=== PATIENT | male | born 2000 | race Caucasian/White ===

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

== ENCOUNTER 2024-12-02 07:04 | Emergency (ER) | payer OTHER, SELFPAY ==
[2024-12-02 07:04] VITALS: BP 148/68; PULSE 76; RESP 19; TEMP 36.7; O2SAT 98; BMI 36.8
--- NOTE | 2024-12-02 07:08 | EDS_ITS ---
HPI History of Present Illness HPI Narrative: Patient presents with right ankle injury that occurred 2 days ago. Patient states he inverted his ankle. Patient states he felt a pop or snap in his ankle. Patient describes his pain as dull and burning. Patient states it is worse with ambulation. Patient denies any paresthesias or weakness. Patient states nothing seems to help with the pain. Patient denies any other injuries. Patient denies any pain over the proximal fibula. Chief Complaint: Lower Extremity Injury Informant: patient Occured/Mechanism Mechanism/Context: Yes injury Comment: Inversion injury Onset/Context/Timing Onset: Days (2 days ago) Context: Sudden Onset Timing: Continuous Quality of Pain: Dull and Burning Location: Right ankle Worsened by: Ambulation, weightbearing Relieved by: Nothing Associated Symptoms Associated Symptoms: Negative for Parasthesia, Weakness or Loss of Funtion [facility] Medical History Asthma Allergies [facility] for apnea Hay fever Home Medications ?Medication ?Instructions ?Recorded ?Last Taken ?Type montelukast 10 mg tablet 10 mg PO DAILY 07/24/18 Unkn own History albuterol sulfate 90 mcg/actuation 2 puff inhalation Q 4H PRN PRN 10/14/19 Unknown Rx aerosol inhaler Asthma #8 grams benzonatate 200 mg capsule 200 mg PO TID PRN cough #20 caps 10/22/24 Unknown Rx methylprednisolone 4 mg tablets in See Rx Instructions PO PER PKG DIR 10/22/24 Unknown Rx a dose pack (Medrol (Iron)) #21 tabs Allergy/AdvReac Type Severity Reaction Status Date / Time amoxicillin Allergy Unknown Rash Verified 12/02/24 07:04 Family History Other Hypertension Mitral valve prolapse Narcolepsy Rheumatoid arthritis Surgical History History of placement of ear tubes History of tonsillectomy and adenoidectomy Social History Smoking Status: Never smoker alcohol intake: never ROS ROS ED Constitutional Constitutional ED: Denies chills or fever(s) Eyes Eyes: Denies blurry vision or change in vision ENT ENT ED: Denies rhinorrhea or sore throat Cardiovascular Cardiovascular: Denies chest pain or palpitations Respiratory/Chest Respiratory/Chest: Denies cough or dyspnea Gastrointestinal Gastrointestinal: Denies nausea or vomiting Genitourinary Genitourinary ED: Denies dysuria or hematuria Musculoskeletal Musculoskeletal: Denies back pain or neck pain Integumentary Denies abscess or rash Neurologic Neurologic: Denies headache(s) or weakness Allergic/Immunologic Allergic/Immunologic ED: Denies mouth swelling or urticaria EXAM Physical Exam Const Vital Signs: 12/02/24 07:04 Temperature 98.1 F Temperature Source Oral Pulse Rate 76 Respiratory Rate 19 H Blood Pressure 148/68 H Blood Pressure Mean 94 Pulse Ox 98 Oxygen Delivery Method Room Air Positive well nourished and well developed General Appearance ED: well developed and NAD HEENT Reports moist mucous membranes Neck full ROM and supple Extremity Extremity Narrative: There is tenderness, edema, and ecchymosis of the lateral aspect of the right ankle and hindfoot. There is no obvious deformity noted. Range of motion was limited in inversion and eversion secondary to pain. Pedal pulses are equal bilaterally. Sensation was intact to light touch in all digits. Capillary refill was less than 2 seconds in all digits. Strength is 5/5 bilaterally in the lower extremities. Neuro oriented x3, CN's II-XII intact bilaterally, moves all extremities and no sensory deficits noted Sensorium / Orientation: alert Motor Exam: strength 5/5 throughout Psych mental status grossly normal MDM MDM MDM Narrative Medical decision making narrative: Differential diagnosis includes sprain, fracture, contusion. X-rays of the right ankle will be obtained to assess for fracture. Radiography Diagnostic Testing: Clinical Impression(s) from Imaging Studies Ankle X-Ray 12/02/24 07:20 IMPRESSION: 1. Well corticated bone fragment adjacent to the tip of the lateral malleolus, chronic finding. 2. Soft tissue edema and swelling overlying the lateral malleolus. Reading Location: [place] [address] X-rays of the right ankle were obtained. There are 2 views. On my independent interpretation, there is a small avulsion fracture of the tip of the lateral malleolus. There are no other acute fractures noted. Radiologist also interpreted the x-rays and stated that this is a chronic finding. Treatment and Re-Evaluation Narrative: Patient was advised of his findings. Patient was given an Aircast. Patient was instructed to ice and elevate the right ankle. Patient was instructed to follow-up with his primary care physician in 5 to 7 days. Patient was also given a referral for podiatry. Patient understood and was agreeable with the plan. All questions were answered. Discharge Plan Triage Chief Complaint: Lower Extremity Injury ED Provider: Denton Parsons Dx/Rx/DC Orders Clinical Impression: Right ankle sprain, Elevated blood pressure reading without diagnosis of hypertension Instructions: ED Ankle Sprain (Adult) Prescriptions: No Action albuterol sulfate 90 mcg/actuation HFA aerosol inhaler 2 puff Inhalation Q4H PRN PRN (Reason: Asthma) Qty: 8 0RF methylprednisolone [Medrol (Iron)] 4 mg tablets,dose pack See Rx Instructions PO PER PKG DIR Qty: 21 0RF Rx Instructions: PO PER PKG DIR benzonatate 200 mg capsule 200 mg PO TID PRN (Reason: cough) Qty: 20 0RF montelukast 10 MG tablet 10 mg PO DAILY Primary Care Provider: Care Physician,No Primary Referrals: David Villegas MD [Med Staff - Baby Formula Mixer] - 5-7 Days Pillo De La Fuente MD [Non-Staff] - Karlos Dugan DPM [Med Staff - Active Staff] - 5-7 Days Print Language: Namibian Disposition Disposition: Home, Self Care
--- NOTE | 2024-12-02 07:20 | RAD_ITS ---
PROCEDURE: ANKLE MIN 3 VIEWS 12/02/2024 REASON FOR EXAM: INJURY/PAIN TECHNIQUE: 3 views of the right ankle COMPARISON: None. FINDINGS: Well corticated bone fragment adjacent to the tip of the lateral malleolus, chronic finding. Soft tissue edema and swelling overlying the lateral malleolus. Normal visualized distal tibia and medial malleolus. Normal visualized distal fibula and lateral malleolus. Normal tibiotalar articulation and ankle mortise. Normal visualized talus. Normal visualized calcaneus. The visualized subtalar, talonavicular, calcaneocuboid and tarsal articulations are normal. RAD/Ankle min 3 Views IMPRESSION: 1. Well corticated bone fragment adjacent to the tip of the lateral malleolus, chronic finding. 2. Soft tissue edema and swelling overlying the lateral malleolus. [facility] [place] [address]
[2024-12-02] MEDS: Ibuprofen 400 MG Tablet 800 MG PO (08:04)
== END 2024-12-02 08:27 | disposition home or self-care (01) ==
PROVIDERS: Emergency Provider Emergency Medicine; Visit Provider Emergency Medicine
DX: S93.401A Sprain of unspecified ligament of right ankle, initial encounter (principal); X50.1XXA Overexertion from prolonged static or awkward postures, initial encounter; R03.0 Elevated blood-pressure reading, without diagnosis of hypertension; J45.909 Unspecified asthma, uncomplicated
CPT/HCPCS: 73610; 99283

== ENCOUNTER → 2025-01-17 | Outpatient (CLI) | payer OTHER, SELFPAY ==
--- OUTSIDE RECORDS SUMMARY | 2025-01-17 07:29 | XMS RPT_ITS | CCD ---
Author Organization [facility] Care Team Providers Care Range Aide Name Role Phone René Hallman Unavailable Angeli Avalos LPN Unavailable Ortiz EXTERMINATOR TERMITE-C, Moy A Unavailable Unavailable Now Nurse Unavailable Unavailable Ely Rebolledo LPN Unavailable Unavailab le Ortiz EXTERMINATOR TERMITE-C, Moy A Unavailable Unavailable Sudhakar DAUGHERTY, Dr. Ferro Primary Care Provider Dr. Ana Fofana MD Referring Provider Sergey Wilson Attending Provider Dr. Denton Parsons DO Emergency Provider Care Physician, No Primary Primary Care Provider Unavailable Sergey Wilson Attending Unavailable Ana Fofana Primary Care Unavailable Ana Fofana Referring Unavailable Care Physician, No Primary Primary Care Unava ilable Denton Parsons Attending Unavailable Care Physician, No Primary Primary Care Unava ilable Karlos Dugan Attending Unavailable Karlos Dguan Referring Unavailable Allergies Allergy Classification Reported Allergen(s) Allergy Type Date of Onset Reaction(s) Facility (7 sources) amoxicillin drug allergy 08-30-2016 Evelyn Ware [facility] Work Phone: (1 source) Amoxicillin Drug Allergy 12-02-2024 [facility] Repository Medications Current Medications Medication Drug Class(es) Dates Sig (Normalized) Sig (Original) [id number] 200 actuat albuterol 0.09 mg/actuat metered dose inhaler (8 sources) beta2-Adrenergic Agonist Start: 07-24-2018 End: 10-14-2019 Albuterol Sulfate 90 mcg/actuation HFA aerosol inhaler Active 2 NMA INHALATION EVERY 4 HOURS NEEDED as needed for Asthma October 14, 2019 3:03pm Start: 08-30-2016 ALBUTEROL SULF ATE NEBU as directed ALBUTEROL SULFATE [facility] [id number] Sergey SALDANA Start: 08-30-2016 ALBUTEROL SULF ATE NEBU as directed ALBUTEROL SULFATE [facility] [id number] Sergey SALDANA benzonatate 200 mg oral capsule (1 source) Non-narcotic Antitussive Start: 10-22-2024 take 1 capsule by mouth three times daily as needed for cough Benzonatate 200 mg capsule Active 200 mg PO THREE TIMES A DAY as needed for cough October 22, 2024 12:00am methylPREDNISolone 4 mg oral tablet (2 sources) Corticosteroid Start: 10-22-2024 take 1 tablet by mouth once Methylprednisolone (Medrol (Iron)) 4 mg tablets,dose pack Active 0 PO per package directions October 22, 2024 12:00am PO PER PKG DIR Start: 10-14-2019 End: 10-19-2019 take 1 tablet by mouth once Methylprednisolone (Medrol (Iron)) 4 mg tablets,dose pack Discontinued 4 mg PO per package directions 31 12October 14, 2019 1:00am October 18, 2019 1:00am October 19, 2019 1:09am montelukast 10 mg oral tablet (7 sources) Leukotriene Receptor Antagonist Start: 07-24-2018 take 1 tablet by mouth once daily Montelukast 10 MG tablet Active 10 mg PO DAILY July 24, 2018 1:00am Start: 08-30-2016 SINGULAIR TABS as directed MONTELUKAST SODIUM TABS [id number] Sergey SALDANA Start: 08-30-2016 SINGULAIR TABS as directed MONTELUKAST SODIUM TABS [id number] Sergey SALDANA Completed/Discontinued Medications Medication Drug Class(es) Dates Sig (Normalized) Sig (Original) azithromycin 250 mg oral tablet (1 source) Macrolide Antimicrobial Start: 10-14-2019 End: 03-26-2020 take 2-5 tablets by mouth once daily Azithromycin 250 mg tablet Discontinued 0 PO .COMPLEX 6 October 14, 2019 1:00am March 26, 2020 7:26am take 500 mg today (day 1), then 250 mg for 4 days (days 2-5) PO LORATADINE TABS (6 sources) Start: 08-30-2016 LORATADINE TABS as directed LORATADINE TABS [id number] Sergey SALDANA Start: 08-30-2016 LORATADINE TAB S as directed LORATADINE TABS [id number] Sergey SALDANA NAPROXEN SODIUM TABS (6 sources) Nonsteroidal Anti-inflammatory Drug Start: 08-30-2016 ALEVE TABS as directed NAPROXEN SODIUM TABS [id number] Sergey SALDANA Start: 08-30-2016 ALEVE TABS as directed NAPROXEN SODIUM TABS [id number] Sergey SALDANA Problems Active Problems Problem Classification Problem Date Documented Da te Episodic/Chronic Asthma (1 source) Asthmatic bronchitis; Translations: [Unspecified asthma with (acute) exacerbation] 10-14-2019 Chronic Fracture of lower limb (1 source) Displaced fracture of lateral malleolus of left fibula, subsequent encounter for closed fracture with delayed healing; Translations: [Displaced fracture of lateral malleolus of left fibula, subsequent encounter for closed fracture with delayed healing] Onset: 01-13-2025 Episodic Immunizations and screening for infectious disease (1 source) Contact with and (suspected) exposure to other viral communicable diseases; Translations: [Contact with and (suspected) exposure to other viral communicable diseases] Onset: 12-16-2024 Episodic Other bone disease and musculoskeletal deformities (4 sources) Segmental and somatic dysfunction; Translations: [Segmental and somatic dysfunction of cervical region] 04-03-2019 Episodic Other circulatory disease (1 source) Elevated blood-pressure reading without diagnosis of hypertension; Translations: [Elevated blood-pressure reading, without diagnosis of hypertension] 12-02-2024 Episodic Other non-traumatic joint disorders (1 source) Pain in right ankle and joints of right foot; Translations: [Pain in right ankle and joints of right foot] Onset: 12-16-2024 Episodic Residual codes; unclassified (1 source) Chills (without fever); Translations: [Chills (without fever)] Onset: 12-16-2024 Episodic Sprains and strains (5 sources) Strain of muscle and/or tendon of lower leg; Translations: [Strain of unspecified muscle and tendon at ankle and foot level, left foot, initial encounter] Onset: 01-13-2025 10-04-2018 Episodic Unclassified (4 sources) History and physical examination, sports participation ; Translations: [Encounter for examination for participation in sport] Onset: 02-15-2017 02-15-2017 Unclassified (1 source) Influenza vaccination ; Translations: [Encounter for immunization] Onset: 07-07-2017 07-07-2017 Unclassified (1 source) Other specified cough; Translations: [Other specified cough] Onset: 12-16-2024 Past or Other Problems Problem Classification Problem Date Documented Da te Episodic/Chronic Crushing injury or internal injury (6 sources) Crushing injury of right hand, initial encounter; Translations: [Crushing injury of right hand, initial encounter] Onset: 01-02-2017 01-02-2017 Episodic Fracture of upper limb (20 sources) Nondisplaced fracture of base of fourth metacarpal bone, right hand, subsequent encounter for fracture with routine healing; Translations: [Nondisplaced fracture of base of third metacarpal bone, right hand, subsequent encounter for fracture with routine healing] Onset: 08-30-2016 09-15-2016 Episodic Other connective tissue disease (8 sources) Foot pain; Translations: [Hand pain] Onset: 01-02-2017 04-27-2017 Episodic Other connective tissue disease (1 source) Hand pain; Translations: [Pain in right hand] Onset: 01-02-2017 01-02-2017 Episodic Superficial injury; contusion (3 sources) Contusion of left foot, initial encounter; Translations: [Contusion of left foot, initial encounter] Onset: 04-27-2017 04-27-2017 Episodic Unclassified (1 source) [facility] for apnea 03-11-2022 Results Test Name Value Interpretation Reference Range Facility Ankle min 3 Viewson 12-03-19 25 Ankle min 3 Views [facility] Imaging Services [address] [place] [id number] Ankle min 3 Views MR#: [id number] Acct: [id number] Name: JAXON KEMP Rep #: [id number] : 2000 M 24 From: Stanton galvan MD PCP: Care Physician,No Primary Status: REG ER Study: Ankle min 3 Views Date of Exam: 12/02/24 Exam# [id number] Ordering Dr: Denton Parsons DO PROCEDURE: ANKLE MIN 3 VIEWS 12/02/2024 REASON FOR EXAM: INJURY/PAIN TECHNIQUE: 3 views of the right ankle COMPARISON: None. FINDINGS: Well corticated bone fragment adjacent to the tip of the lateral malleolus, chronic finding. Soft tissue edema and swelling overlying the lateral malleolus. Normal visualized distal tibia and medial malleolus. Normal visualized distal fibula and lateral malleolus. Normal tibiotalar articulation and ankle mortise. Normal visualized talus. Normal visualized calcaneus. The visualized subtalar, talonavicular, calcaneocuboid and tarsal articulations are normal. RAD/Ankle min 3 Views IMPRESSION: 1. Well corticated bone fragment adjacent to the tip of the lateral malleolus, chronic finding. 2. Soft tissue edema and swelling overlying the lateral malleolus. Reading Location: [place] [address] CC: Dr. Denton Parsons DO; No Primary Care Physician Quotation Checker: Signed Normal [facility] Emergency Department Summary on 12-02-2024 Emergency Department Summary [facility] Medical Records Department [address] [place] [address] Emergency Department Summary 12/02/24 MR#: [id number] Acct: [id number] Name: JAXON KEMP Rep #: [id number] : 2000 24 From: Denton Parsons DO PCP: Care Physician,No Primary Status:DEP ER Location: ED HPI History of Present Illness HPI Narrative: Patient presents with right ankle injury that occurred 2 days ago. Patient states he inverted his ankle. Patient states he felt a pop or snap in his ankle. Patient describes his pain as dull and burning. Patient states it is worse with ambulation. Patient denies any paresthesias or weakness. Patient states nothing seems to help with the pain. Patient denies any other injuries. Patient denies any pain over the proximal fibula. Chief Complaint: Lower Extremity Injury Informant: patient Occured/Mechanism Mechanism/Context: Yes injury Comment: Inversion injury Onset/Context/Timing Onset: Days (2 days ago) Context: Sudden Onset Timing: Continuous Quality of Pain: Dull and Burning Location: Right ankle Worsened by: Ambulation, weightbearing Relieved by: Nothing Associated Symptoms Associated Symptoms: Negative for Parasthesia, Weakness or Loss of Funtion [facility] Medical History Asthma Allergies [facility] for apnea Hay fever Home Medications ???Medication ???Instructions ???Recorded ???Last Taken ???Type montelukast 10 mg tablet 10 mg PO DAILY 07/24/18 Unknown Hi story albuterol sulfate 90 mcg/actuation 2 puff inhalation Q4H PRN PRN Unknown Rx aerosol inhaler Asthma #8 grams benzonatate 200 mg capsule 200 mg PO TID PRN cough #20 caps 0 10/22/24 Unknown Rx methylprednisolone 4 mg tablets in See Rx Instructions PO PER PKG D IR 10/22/24 Unknown Rx a dose pack (Medrol (Iron)) #21 tabs Allergy/AdvReac Type Severity Reaction Status Date / Time amoxicillin Allergy Unknown Rash Verified 12/02/24 07:04 Family History Other Hypertension Mitral valve prolapse Narcolepsy Rheumatoid arthritis Surgical History History of placement of ear tubes History of tonsillectomy and adenoidectomy Social History Smoking Status: Never smoker alcohol intake: never ROS ROS ED Constitutional Constitutional ED: Denies chills or fever(s) Eyes Eyes: Denies blurry vision or change in vision ENT ENT ED: Denies rhinorrhea or sore throat Cardiovascular Cardiovascular: Denies chest pain or palpitations Respiratory/Chest Respiratory/Chest: Denies cough or dyspnea Gastrointestinal Gastrointestinal: Denies nausea or vomiting Genitourinary Genitourinary ED: Denies dysuria or hematuria Musculoskeletal Musculoskeletal: Denies back pain or neck pain Integumentary Denies abscess or rash Neurologic Neurologic: Denies headache(s) or weakness Allergic/Immunologic Allergic/Immunologic ED: Denies mouth swelling or urticaria EXAM Physical Exam Const Vital Signs: 12/02/24 07:04 Temperature 98.1 F Temperature Source Oral Pulse Rate 76 Respiratory Rate 19 H Blood Pressure 148/68 H Blood Pressure Mean 94 Pulse Ox 98 Oxygen Delivery Method Room Air Positive well nourished and well developed General Appearance ED: well developed and NAD HEENT Reports moist mucous membranes Neck full ROM and supple Extremity Extremity Narrative: There is tenderness, edema, and ecchymosis of the lateral aspect of the right ankle and hindfoot. There is no obvious deformity noted. Range of motion was limited in inversion and eversion secondary to pain. Pedal pulses are equal bilaterally. Sensation was intact to light touch in all digits. Capillary refill was less than 2 seconds in all digits. Strength is 5/5 bilaterally in the lower extremities. Neuro oriented x3, CN's II-XII intact bilaterally, moves all extremities and no sensory deficits noted Sensorium / Orientation: alert Motor Exam: strength 5/5 throughout Psych mental status grossly normal MDM MDM MDM Narrative Medical decision making narrative: Differential diagnosis includes sprain, fracture, contusion. X-rays of the right ankle will be obtained to assess for fracture. Radiography Diagnostic Testing: Clinical Impression(s) from Imaging Studies Ankle X-Ray 12/02/24 07:20 IMPRESSION: 1. Well corticated bone fragment adjacent to the tip of the lateral malleolus, chronic finding. 2. Soft tissue edema and swelling overlying the lateral malleolus. Reading Location: [place] [address] X-rays of the right ankle were obtai (more content not included)... Normal [facility] - Microbiology an d Antimicrobial susceptibilityOrdered By: Sergey Estrada on 10-22-2024 SARS-CoV-2 (COVID-19) RNA ASIM+probe Ql (Unsp spec) Not detected [facility] No Panel InformationOrdered By: Sergey Estrada on 10-22-2024 Influenza Types A,B Rapid (Clinic) Detected [facility] Urgent Care Visit Reporton 0 10-22-2024 Urgent Care Visit Report [facility] [address], [address] [place] [address] OFFICE VISIT Date of Service: 10/22/24 MR#: [id number] Acct: [id number] Name: JAXON KEMP Rep #: [id number] : 2000 Provider: SHANA Sen Age/Sex: 24/M Location: [facility] [place] Status: Signed Intake Vital Signs 10/21/24 19:55 10/22/24 06:14 Height 5 ft 1 in BP 126/62 H Blood Pressure Location Lt brachial Position Sitting Respiration 15 Pulse 78 Pulse Source NIBP Temp 98.5 F Temp Source Oral Pulse Oximetry (%) 98 Oxygen Delivery Method room air Intake Visit Reasons: COUGH/ST/SINUS COMP Chief Complaint: cough, ST, chills/sweats, congest Special Education Teacher Required: No Is patient in pain?: No Allergies amoxicillin Allergy (Unknown, Verified 10/22/24 06:15) Rash Have you fallen in the past year?: No Nurse's Note: cough, ST, chills/sweats, congest x 4 days. denies fever, RUANO, BA. [facility] Medical History (Updated 03/11/22 @ 10:00 by Nadine Mckee) Asthma Allergies [facility] for apnea Hay fever Surgical History History of placement of ear tubes History of tonsillectomy and adenoidectomy Family History Other Hypertension Mitral valve prolapse Narcolepsy Rheumatoid arthritis Social History (Updated 10/07/20 @ 14:[address] Lacy [place], [place]) Smoking Status: Never smoker alcohol intake: never HPI HPI Chief Complaint: cough, ST, chills/sweats, congest Details: JAXON KEMP, is a 24 M who presents to the office today for initial evaluation in the [facility] for approximately 3-4 day history of persistent chills, sweats, cough, congestion.??? No complaints of fever, RUANO, myalgias, fatigue, chest pain or shortness of breath or dyspnea on exertion. Nonsmoker. Several close contacts recently diagnosed with similar URI complaints. No over the counter taken to assist. No other associated symptoms and no other alleviating/aggravati ng factors. ROS Const Constitutional: No other (As above) Exam Const General: cooperative, healthy appearing and no acute distress Orientation: alert, awake and oriented x3 HENMT Head: normal to inspection Ears: hearing grossly normal bilaterally, external ears normal, TM's normal bilaterally and EAC's normal Nose: external nose normal, nares normal, septum normal and clear nasal discharge Face and sinus: normal facial exam, sinuses nontender and face symmetric Mouth: oral mucosae normal, lip normal, tongue normal and oropharynx normal Throat: posterior oropharynx normal, tonsils normal, uvula midline and no postnasal drainage Eyes General: appearance normal, both eyes and all related structures Neck Neck: normal visual inspection, full ROM, no lymphadenopathy, no meningeal signs and supple Neck mass: No Thyroid: thyroid normal Lymphatic: no lymphadenopathy noted Chest Chest palpation inspection: normal inspection of the chest Resp Effort Inspection: normal respiratory effort, able to speak in complete sentences and cough Quality of cough: wet (nonproductive in office today) Auscultation: Bilateral: Clear to Auscultation Cardio Palpation: normal PMI Rate: Regular Rhythm: regular rhythm Heart Sounds: S1 normal, S2 normal, no gallops, no murmurs and no rubs Pulses: radial pulses present Skin General: no rashes or lesions noted Neuro General: patient alert, patient awake and patient oriented x3 Cognition: normal cognition Speech: speech normal Psych Appearance: grossly normal Mental Status: mental status grossly normal Mood: congruent mood Affect: normal affect Speech and Movement: speech and movement normal Attitude: cooperative Diagnoses Influenza A??? J10.1 Assessment and Plan Assessment and Plan (1) Influenza A: Status: Acute Plan: See POC results. Medrol and benzonatate as prescribed today. Supportive measures as instructed today. Work excuse as provided. Follow-up with PCP in 5 to 7 days should symptoms not improve, ED sooner should symptoms worsen or any other concerns develop. Pt states acknowledging understanding all the above. Coding Level of Care Code Off vis,new,level 3 Assessment and Plan Assessment and Plan Orders: Orders POC [place] Covid FLUAB PCR Today Medications: New methylprednisolone (Medrol (Iron)) PO PER PKG DIR 21 tabs 0RF benzonatate 200 mg PO TID PRN 20 caps 0RF cough Plan Details Goals Barriers: Goals Improve intersegmental motion Decrease spasm Improve ROM Barriers Asthma(coughing) Football Clinical Quality Measures Falls Risk Screening/Assistive Devices Have you fallen in the past year?: No 10/22/24 0639 Date Sergey Szymanski (more content not included)... [facility] 02-21-2020 CNOV Office Visit (PEDSWS ) KEMPJAXON NASSAR ([id number]) 4 M Date Time Provider Department 02/21/20 10:00 AM ANA FOFANA During your visit today, we recorded the following information about you: Temperature Pulse Respiration Blood pressure 98.2 degrees 64/minute 16/minute 112/70 Weight Height 77.1 kg 1.89 m Ana Fofana MD 02/25/2020 11:37 AM Signed WELL VISIT PEDIATRIC MALE 14-17 YRS OLD SERVICE DATE: 02/21/2020 Jaxon is a 19 year old male who presents today for well exam accompanied by his mother. SUBJECTIVE CONCERNS: no concerns HISTORY ACTIVE PROBLEM LIST Asthma, Intermittent, Uncomplicated - 08/12/2012 Migraines - 08/12/2012 PAST MEDICAL HISTORY Diagnosis Date - Heart [...] - REMOVAL OF TONSILS,<12 Y/O 01/16 Tonsillectomy Allergies: ALLERGIES Allergen Reactions - Seasonal Allergies Other: See Comments runny nose and runny eyes Medications: montelukast (SINGULAIR) 10 mg tablet Take 1 tablet by mouth daily at bedtime. naproxen sodium (ALEVE ORAL) Take by mouth as needed. albuterol HFA (PROAIR HFA) 90 mcg/actuation inhaler Inhale 2 Puffs as instructed every 4 hours as needed for Wheezing/Shortness of Breath. cetirizine (ZYRTEC) 10 mg tablet Take 1 tablet by mouth once daily. Family History: FAMILY HISTORY Problem Relation Age of Onset - Hypertension Mother - other (narcolepsy) Mother - other (mvp) Mother - Heart Other mggf - heart attack age 38 Social History Social History Narrative Not on file Smoking Exposure: Does your child spend a significant amount of time in the care of anyone who smokes? No School: Grade: 12th; grades A and A-B. Physical Activity: more than 1 hour of physical activity per day Screen Time totaling less than 2 hours of screen time per day. Safety: seat belts, bike helmets, sunscreen and driving Diet: -Eats 3 meals per day and 2-3 snacks per day -Typical beverages include water and sugar containing beverages -Fruits and vegetables are eaten with nearly every meal -# of fast food meals/week: 0-1 -# of days/week that family has dinner together: 4-5 Elimination: no concerns, normal size and consistency Dental: dental care current Sleep: -no sleep concerns Substance use: none Sexual History: Attraction: female Sexually Active: No REVIEW OF SYSTEMS GENERAL: No fevers EYES: No vision concerns ENT: No hearing concerns RESPIRATORY: Negative for cough, wheezing or respiratory distress CARDIOVASCULAR: Negative for chest pain, syncope, lightheadness or heart racing SKIN: Positive for rash: poisen ni ENDOCRINE: No growth concerns OBJECTIVE Physical Exam: BP 128/82 Pulse 64 Temp 36.8 ?C (98.2 ?F) (Temporal Artery) Resp 16 Ht 189 cm (6' 2.41) Wt 77.1 kg (170 lb) BMI 21.59 kg/m? Blood pressure percentiles are 74 % systolic and 86 % diastolic based on the 2017 AAP Clinical Practice Guideline. This reading is in the Stage 1 hypertension range (BP >= 130/80). Last BMI: Wt: 68 kg (150 lb) (68 %, Z= 0.48)* BMI: 20.18 kg/(m2) Last 4 Encounter Wt Readings: Date: Wt: 12/27/2018 68 kg (150 lb) (68 %, Z= 0.48)* 11/11/2018 68.5 kg (151 lb) (71 %, Z= 0.55)* 12/22/2017 63.5 kg (140 lb) (68 %, Z= 0.47)* 11/26/2017 63 kg (139 lb) (68 %, Z= 0.46)* Last 4 Encounter Ht Readings: Date: Ht: 12/27/2018 183.6 cm (6' 0.28) (90 %, Z= 1.28)* 11/11/2018 183.6 cm (6' 0.28) (90 %, Z= 1.31)* 11/09/2017 177 cm (5' 9.69) (78 %, Z= 0.77)* 02/28/2016 162.6 cm (5' 4) (59 %, Z= 0.24)* General: alert and active in no apparent [...] appropriate gait, muscle tone normal, muscle strength 5/5 in both the upper and lower extremities bilaterally and symmetrically, rapid alternating movements intact without dysdiadochokinesia Skin: Normal skin exam without concerning lesions ASSESSMENT: 19 year old Well exam ACTIVE PROBLEM LIST Asthma, Intermittent, Uncomplicated Migraines PLAN: 1) Plan per orders. Office Visit on 02/21/20 - montelukast (SINGULAIR) 10 mg tablet - ProAir RespiClick 90 mcg/actuation breath activated (albuterol sulfate) 2) Hearing and Vision if done at the visit was discussed and reviewed with the patient and family. 3) Questionnaires, if administered at the office today, were reviewed with the patient and family. 4) Growth curves including BMI were reviewed with the patient. Education regarding BMI, its meaning utility and limitations were discussed in the office today. If the BMI was elevated, we discussed interventions. 5) Counseling: See patient instruction section 6) Follow up every 1 year for well exam and PRN. 50 %ile (Z= 0.00) based on CDC (Boys, 2-20 Years) BMI-for-age based on BMI available as of 02/21/2020. Jaxon is normal weight (BMI 5th% - 84th%): -To maintain a healthy weight, discussed limiting screen time to less than 2 hours per day, physical activity for at least one hour per day, 5 servings of fruits and vegetables per day, 3 meals per day, family meals ar home and no sugar containing beverages SIGNATURE:Ana Fofana MD PATIENT NAME: Jaxon Kemp DATE: February 21, 2020 TIME: 9:42 AM Referring Provider: SELF [[id number]] Allergies As of Date: 02/21/2020 Noted Allergy Reaction SEASONAL ALLERGIES 08/10/2010 14 - Other: See Comments Comments: runny nose and runny eyes Date Reviewed: 02/21/2020 Reviewed by: Ana Fofana - Fully Assessed Reason for Visit: Well Child [122] Primary Visit Diagnosis:Well adolescent visit [Z00.3] Other Visit Diagnosis:Asthma, mild intermittent, well-controlled [J45.20] Order(s):montelukast (SINGULAIR) 10 mg tabletTake 1 tablet by mouth daily at bedtime. Take May 13 thru November 09.Disp: 90 tabletRfl: 3 ProAir RespiClick 90 mcg/actuation breath activated (albuterol sulfate)2 inhalations every 4 hours prn cough, wheeze, dyspnea.Disp: 1 EachRfl: 0 Prescriptions as of 02/21/2020 Sig: ALEVE ORAL Take by mouth as needed. MONTELUKAST 10 MG TABLET Take 1 tablet by mouth daily * PROAIR RESPICLICK 90 MCG/ACTU* 2 inhalations every 4 hours p* Problem List As Of Date 02/21/2020 Noted Resolved Asthma, intermittent, uncomplicated [J45.20] 08/12/2012 Migraines [G43.909] 08/12/2012 Prescriptions ordered this encounter Disp Refills Start End MONTELUKAST 10 MG TABLET 90 t* 3 02/21/2020 Route: ORAL Sig: Take 1 tablet by mouth daily at bedtime. Take May 13 thru November 09. PROAIR RESPICLICK 90 MCG/ACTUATION B* 1 Ea* 0 02/21/2020 Si inhalations every 4 hours prn cough, wheeze, dyspnea. Medications Discontinued During This Encounter montelukast (SINGULAIR) 10 mg tablet 90 t* 3 09/18/2018 02/21/2020 Route: ORAL Sig: Take 1 tablet by mouth daily at bedtime. Disc: Reason for discontinue is not on file. albuterol HFA (PROAIR HFA) 90 mcg/ac* 1 In* 0 07/03/2017 02/21/2020 Route: INHALATION Sig: Inhale 2 Puffs as instructed every 4 hours as needed for Wheezing/Shortness of Breath. Disc: Changing Therapy/Dosage Form cetirizine (ZYRTEC) 10 mg tablet 0 11/27/2013 02/25/2020 Class: Historical Med Route: ORAL Sig: Take 1 tablet by mouth once daily. Disc: Course of therapy completed Questionnaire: ASTHMA CONTROL TEST Last 4 weeks, your asthma limited your activity at work or home: -> 5 NONE OF THE TIME Past 4 weeks, how often have you had shortness of breath? -> 4 ONCE OR TWICE A WEEK Past 4 weeks: Asthma symptoms woke you at night or earlier than usual? -> 5 NOT AT ALL Past 4 weeks: How often did you use rescue inhaler or nebulizer med? -> 5 NOT AT ALL Rate your Asthma Control during the past 4 weeks: -> 4 WELL CONTROLLED ACT TOTAL SCORE: -> 23 Questionnaire: PHQ-9 THE LAST 2 WEEKS, HAVE YOU BEEN BOTHERED BY ANY OF THE FOLLOWING? -> - Little interest or pleasure in doing things -> 0 NOT AT ALL Feeling down, depressed, or hopeless -> 0 Trouble falling or staying asleep, or sleeping too much -> 0 Feeling tired or having little energy -> 0 Poor appetite or overeating -> 0 Feeling bad yourself-you are a failure or have let yourself or others -> 0 Trouble concentrating, like reading the paper or watching TV -> 0 Moving/speaking slowly (others notice) OR being more fidgety/restless -> 0 Thoughts that you would be better off or of hurting yourself -> 0 PHQ TOTAL SCORE = -> 0 PHQ problems effect on difficulty of work, home, and social activity: -> 1 - NOT DIFFICULT AT ALL Encounter Status:Closed by ANA FOFANA MD on 02/25/20 Normal [facility] PROGRESSon 02-21-2020 PROGRESS HNO ID: [id number] Author: Ana Fofana Service: ? Author Type: Physician Type: Progress Notes Filed: 02/25/2020 11:37 AM Note Text: WELL VISIT PEDIATRIC MALE 14-17 YRS OLD SERVICE DATE: 02/21/2020 Jaxon is a 19 year old male who presents today for well exam accompanied by his mother. SUBJECTIVE CONCERNS: no concerns HISTORY ACTIVE PROBLEM LIST Asthma, Intermittent, Uncomplicated - 08/12/2012 Migraines - 08/12/2012 PAST MEDICAL HISTORY Diagnosis Date - Heart [...] - REMOVAL OF TONSILS,<12 Y/O 01/16 Tonsillectomy Allergies: ALLERGIES Allergen Reactions - Seasonal Allergies Other: See Comments runny nose and runny eyes Medications: montelukast (SINGULAIR) 10 mg tablet Take 1 tablet by mouth daily at bedtime. naproxen sodium (ALEVE ORAL) Take by mouth as needed. albuterol HFA (PROAIR HFA) 90 mcg/actuation inhaler Inhale 2 Puffs as instructed every 4 hours as needed for Wheezing/Shortness of Breath. cetirizine (ZYRTEC) 10 mg tablet Take 1 tablet by mouth once daily. Family History: FAMILY HISTORY Problem Relation Age of Onset - Hypertension Mother - other (narcolepsy) Mother - other (mvp) Mother - Heart Other mggf - heart attack age 38 Social History Social History Narrative Not on file Smoking Exposure: Does your child spend a significant amount of time in the care of anyone who smokes? No School: Grade: 12th; grades A and A-B. Physical Activity: more than 1 hour of physical activity per day Screen Time totaling less than 2 hours of screen time per day. Safety: seat belts, bike helmets, sunscreen and driving Diet: -Eats 3 meals per day and 2-3 snacks per day -Typical beverages include water and sugar containing beverages -Fruits and vegetables are eaten with nearly every meal -# of fast food meals/week: 0-1 -# of days/week that family has dinner together: 4-5 Elimination: no concerns, normal size and consistency Dental: dental care current Sleep: -no sleep concerns Substance use: none Sexual History: Attraction: female Sexually Active: No REVIEW OF SYSTEMS GENERAL: No fevers EYES: No vision concerns ENT: No hearing concerns RESPIRATORY: Negative for cough, wheezing or respiratory distress CARDIOVASCULAR: Negative for chest pain, syncope, lightheadness or heart racing SKIN: Positive for rash: poisen ni ENDOCRINE: No growth concerns OBJECTIVE Physical Exam: BP 128/82 Pulse 64 Temp 36.8 ?C (98.2 ?F) (Temporal Artery) Resp 16 Ht 189 cm (6' 2.41) Wt 77.1 kg (170 lb) BMI 21.59 kg/m? Blood pressure percentiles are 74 % systolic and 86 % diastolic based on the 2017 AAP Clinical Practice Guideline. This reading is in the Stage 1 hypertension range (BP >= 130/80). Last BMI: Wt: 68 kg (150 lb) (68 %, Z= 0.48)* BMI: 20.18 kg/(m2) Last 4 Encounter Wt Readings: Date: Wt: 12/27/2018 68 kg (150 lb) (68 %, Z= 0.48)* 11/11/2018 68.5 kg (151 lb) (71 %, Z= 0.55)* 12/22/2017 63.5 kg (140 lb) (68 %, Z= 0.47)* 11/26/2017 63 kg (139 lb) (68 %, Z= 0.46)* Last 4 Encounter Ht Readings: Date: Ht: 12/27/2018 183.6 cm (6' 0.28) (90 %, Z= 1.28)* 11/11/2018 183.6 cm (6' 0.28) (90 %, Z= 1.31)* 11/09/2017 177 cm (5' 9.69) (78 %, Z= 0.77)* 02/28/2016 162.6 cm (5' 4) (59 %, Z= 0.24)* General: alert and active in no apparent [...] appropriate gait, muscle tone normal, muscle strength 5/5 in both the upper and lower extremities bilaterally and symmetrically, rapid alternating movements intact without dysdiadochokinesia Skin: Normal skin exam without concerning lesions ASSESSMENT: 19 year old Well exam ACTIVE PROBLEM LIST Asthma, Intermittent, Uncomplicated Migraines PLAN: 1) Plan per orders. Office Visit on 02/21/20 - montelukast (SINGULAIR) 10 mg tablet - ProAir RespiClick 90 mcg/actuation breath activated (albuterol sulfate) 2) Hearing and Vision if done at the visit was discussed and reviewed with the patient and family. 3) Questionnaires, if administered at the office today, were reviewed with the patient and family. 4) Growth curves including BMI were reviewed with the patient. Education regarding BMI, its meaning utility and limitations were discussed in the office today. If the BMI was elevated, we discussed interventions. 5) Counseling: See patient instruction section 6) Follow up every 1 year for well exam and PRN. 50 %ile (Z= 0.00) based on CDC (Boys, 2-20 Years) BMI-for-age based on BMI available as of 02/21/2020. Jaxon is normal weight (BMI 5th% - 84th%): -To maintain a healthy weight, discussed limiting screen time to less than 2 hours per day, physical activity for at least one hour per day, 5 servings of fruits and vegetables per day, 3 meals per day, family meals ar home and no sugar containing beverages SIGNATURE:Ana Fofana MD PATIENT NAME: Jaxon Kemp DATE: February 21, 2020 TIME: 9:42 AM Normal [facility] CNNURSEon 06-07-2019 [facility] [address] Nurse Visit (FAMPWS) KEMPJAXON DO ([id number]) 4 M Date Time Provider Department 06/07/19 11:40 AM MS NURSE BARRY During your visit today, we recorded the following information about you: Referring Provider: ANA FOFANA [[id number]] Allergies As of Date: 06/07/2019 Noted Allergy Reaction SEASONAL ALLERGIES 08/10/2010 14 - Other: See Comments Comments: runny nose and runny eyes Date Reviewed: 12/27/2018 Reviewed by: Jamar Taveras RN - Fully Assessed Reason for Visit: Imm/Inj [58] Cmt: Flu Vaccine Primary Visit Diagnosis:Need for vaccination [Z23] Order(s):INFLUENZA VACCINE QUADRIVALENT AGE 3 YRS PLUS + IM [[id number]] Order #: [id number] Prescriptions as of 06/07/2019 Sig: MONTELUKAST 10 MG TABLET Take 1 tablet by mouth daily * ALEVE ORAL Take by mouth as needed. ALBUTEROL SULFATE HFA 90 MCG/* Inhale 2 Puffs as instructed * CETIRIZINE 10 MG TABLET Take 1 tablet by mouth once d* Problem List As Of Date 06/07/2019 Noted Resolved Asthma, intermittent, uncomplicated [J45.20] INVALID FOR* Migraines [G43.909] INVALID FOR* Encounter Status:Closed by GOLD DUCKWORTH CMA on 06/07/19 [facility] Office Visit: UC: Magda salgado 04-27-2017 Documentation of current medications (procedure) Done Invalid Interpretation Code [facility] Work Phone: Fall risk assessment No Invalid Interpretation Code [facility] Work Phone: Tobacco smoking status NHIS Never Invalid Interpretation Code [facility] Work Phone: Tobacco use CPHS Never smoker Invalid Interpretation Code [facility] Work Phone: [facility]ation of current medications (procedure) Done Invalid Interpretation Code [facility] Work Phone: Protein mass conc Done [facility] Work Phone: Tobacco smoking status NHIS Never smoker [facility] Work Phone: Tobacco use CPHS Never smoker Invalid Interpretation Code [facility] Work Phone: Office Visit: UC: Elen nguyen 01-02-2017 Documentation of current medications (procedure) Done Invalid Interpretation Code [facility] Work Phone: Fall risk assessment No Invalid Interpretation Code [facility] Work Phone: Tobacco use CPHS Never smoker Invalid Interpretation Code [facility] Work Phone: Vital Signs Date Time Vital Sign Value Performing Clinician Richi bear 12-02-2024 07:04-0400 Body height 154.[address] Ana Fofana MD Work Phone: [phone] [place] [address] 12-02-2024 07:04-0400 Body mass index (BMI) [Ratio] 36.8 kg/m2 Dr. Ana Fofana MD Work Phone: 4(775)591-847844 [place] [address] 12-02-2024 07:04-0400 Body temperature 98.1 [degF] Dr. Ana Fofana MD Work Phone: 5(002)231-212344 [place] [address] 12-02-2024 07:04-0400 Body weight 88.[address] Ana Fofana MD Work Phone: [phone])500-826544 [place] [address] 12-02-2024 07:04-0400 Diastolic blood pressure 68 mm[Hg] Dr. Ana Fofana MD Work Phone: 0(144)464-734744 [place] [address] 12-02-2024 07:04-0400 Heart rate 76 /min Dr. Ana Fofana MD Work Phone: 5(011)880-288544 [place] [address] 12-02-2024 07:04-0400 Respiratory rate 19 /min Dr. Ana Fofana MD Work Phone: 1(132)685-625044 [place] [address] 12-02-2024 07:04-0400 SaO2% (BldA) [Mass fraction] 98 % Dr. Ana Fofana MD Work Phone: 3(408)616-347644 [place] [address] 12-02-2024 07:04-0400 Systolic blood pressure 148 mm[Hg] Dr. Ana Fofana MD Work Phone: 6(327)676-230544 [place] [address] 10-22-2024 06:14-0400 Body temperature 98.5 [degF] Dr. Ana Fofana MD Work Phone: [facility] 10-22-2024 06:14-0400 Diastolic blood pressure 62 mm[Hg] Dr. Ana Fofana MD Work Phone: [facility] 10-22-2024 06:14-0400 Heart rate 78 /min Dr. Ana Fofana MD Work Phone: [facility] 10-22-2024 06:14-0400 Respiratory rate 15 /min Dr. Ana Fofana MD Work Phone: [facility] 10-22-2024 06:14-0400 SaO2% (BldA) [Mass fraction] 98 % Dr. Ana Fofana MD Work Phone: [facility] 10-22-2024 06:14-0400 Systolic blood pressure 126 mm[Hg] Dr. Ana Fofana MD Work Phone: [facility] 04-27-2017 17:00-0400 BMI (Body Mass Index) 21.79 kg/m2 Angeli Bailey [facility] Work Phone: 04-27-2017 17:00-0400 Body Temperature 98.1 [degF] Angeli Gillti [facility] Work Phone: 04-27-2017 17:00-0400 BP Diastolic 72 mm[Hg] Angeli Gillti [facility] Work Phone: 04-27-2017 17:00-0400 BP Systolic 116 mm[Hg] Angeli Gillti [facility] Work Phone: 04-27-2017 17:00-0400 Height 167.64 cm Angeli Gillti [facility] Work Phone: 04-27-2017 17:00-0400 Pulse (Heart Rate) 95 /min Angeli Gillti [facility] Work Phone: 04-27-2017 17:00-0400 Respiratory Rate 16 /min Angeli Gillti [facility] Work Phone: 04-27-2017 17:00-0400 Weight 61.24 kg Angeli Avalos LPN [facility] Work Phone: 01-02-2017 15:57-0400 BMI (Body Mass Index) 21.69 kg/m2 [facility] Work Phone: 01-02-2017 15:57-0400 Body Temperature 98.5 [degF] [facility] Work Phone: 01-02-2017 15:57-0400 BP Diastolic 68 mm[Hg] [facility] Work Phone: 01-02-2017 15:57-0400 BP Systolic 118 mm[Hg] [facility] Work Phone: 01-02-2017 15:57-0400 Height 167.64 cm [facility] Work Phone: 01-02-2017 15:57-0400 Pulse (Heart Rate) 78 /min [facility] Work Phone: 01-02-2017 15:57-0400 Pulse Oximetry 96 % [facility] Work Phone: 01-02-2017 15:57-0400 Respiratory Rate 16 /min [facility] Work Phone: 01-02-2017 15:57-0400 Weight 60.96 kg [facility] Work Phone: 08-30-2016 15:27-0500 BSA (Body Surface Area) 1.62 m2 [facility] Work Phone: Encounters Encounter Date Encounter Type Care Provider Facility Start: 01-17-2025 ambulatory No Primary Car e Physician Facility:[facility] Start: 12-02-2024 End: 12-02-2024 Emergency department patient visit Dr. Ana Fofana MD Work Phone: -Emergency Department Work Phone: Start: 10-22-2024 End: 10-22-2024 Patient encounter procedure Sergey SALDANA [facility] Work Phone: Start: 10-22-2024 End: 10-22-2024 ambulatory Sergey SALDANA Facility:[facility] Procedures Date Procedure Procedure Detail Performing Clinician Start: 12-02-2024 X-ray of ankle, three or more views Dr. Aan Fofana MD Work Phone: Start: 07-07-2017 End: 07-07-2017 Cciiv4 vaccine preservative free 0.5 ml im use Moy Connor PA-C Work Phone: Start: 02-15-2017 History and physical examination, sports participation Sports physical examination Moy Diana EXTERMINATOR TERMITE-C Plan of Treatment Date Care Activity Detail Author Start: 12-02-2024 [facility] Start: 07-07-2017 End: 07-07-2017 Appointment Appointment [facility] Work Phone: Start: 04-27-2017 End: 04-27-2017 Appointment Appointment [facility] Work Phone: Start: 04-27-2017 End: 04-27-2017 Radex foot complete minimum 3 views X-Ray, Foot [facility] Work Phone: Start: 04-27-2017 End: 04-27-2017 X-ray exam of foot X-Ray, Foot [facility] Work Phone: Start: 02-15-2017 End: 02-15-2017 Appointment Appointment [facility] Work Phone: Start: 01-02-2017 End: 01-02-2017 Radex hand minimum 3 views X-Ray, Hand [facility] Work Phone: Start: 01-02-2017 End: 01-02-2017 X-ray exam of hand X-Ray, Hand [facility] Work Phone: Start: 10-09-2016 End: 10-09-2016 Radex hand minimum 3 views X-Ray, Hand [facility] Work Phone: Start: 10-09-2016 End: 10-09-2016 X-ray exam of hand X-Ray, Hand [facility] Work Phone: Start: 09-15-2016 End: 09-15-2016 Radex hand minimum 3 views X-Ray, Hand [facility] Work Phone: Start: 09-15-2016 End: 09-15-2016 X-ray exam of hand X-Ray, Hand [facility] Work Phone: Start: 08-30-2016 End: 08-30-2016 Office outpatient new 45 minutes [id number] Ofc Vst, New Level IV [facility] Work Phone: Start: 08-30-2016 End: 08-30-2016 Radex hand minimum 3 views X-Ray, Hand [facility] Work Phone: Start: 08-30-2016 End: 08-30-2016 Office/outpatient visit, new, level 4 [id number] Ofc Vst, New Level IV [facility] Work Phone: Start: 08-30-2016 End: 08-30-2016 X-ray exam of hand X-Ray, Hand [facility] Work Phone: Patient Education [facility] Work Phone: Patient referral [facility] Work Phone: Payers Date Payer Category Payer Self-pay 2024 Unknown [id number] 2024 Unknown [id number] Unknown [id number] Unknown [id number] Unknown [id number] Social History Date Type Detail Facility Start: [facility]-02-2024 [facility] Start: 12-02-2024 Sex Male (finding) [facility] Start: 2000 Sex Assigned At Male [facility] Goals Date Patient Goal Desired Activity /State Radiology Diagnostic study note 12-02-2024 Note Date & Type Note Facility 12-02-2024 Radiology Diagnostic study note [facility] Imaging Services [address] [place] [address] Ankle min 3 Views MR#: [id number] Acct: [id number] Name: JAXON KEMP Rep #: [id number] : 2000 M 24 From: Fanny Bagley MD PCP: Care Physician,No Primary Status: REG ER Study:Ankle min 3 Views Date of Exam: Exam# [id number] Ordering Dr: Denton Parsons DO PROCEDURE: ANKLE MIN 3 VIEWS 12/02/2024 REASON FOR EXAM: INJURY/PAIN TECHNIQUE: 3 views of the right ankle COMPARISON: None. FINDINGS: Well corticated bone fragment adjacent to the tip of the lateral malleolus, chronic finding. Soft tissue edema and swelling overlying the lateral malleolus. Normal visualized distal tibia and medial malleolus. Normal visualized distal fibula and lateral malleolus. Normal tibiotalar articulation and ankle mortise. Normal visualized talus. Normal visualized calcaneus. The visualized subtalar, talonavicular, calcaneocuboid and tarsal articulations are normal. RAD/Ankle min 3 Views IMPRESSION: 1. Well corticated bone fragment adjacent to the tip of the lateral malleolus, chronic finding. 2. Soft tissue edema and swelling overlying the lateral malleolus. Reading Location: [place] [address] CC: Dr. Denton Parsons DO; No Primary Care Physician ~ Quotation Checker: Signed [facility] Evaluation note Note Date & Type Note Facility Evaluation note No assessment information availa [facility] Work Phone: Reason for referral (narrative) Note Date & Type Note Facility Reason for referral (narrative) No reason for referral information available [facility] Work Phone: Summary Purpose Family History No Family History Records Found Relationship Condition Age at Onset Recorded Date/T delmi Not Specified Rheumatoid arthritis Unknown Narcolepsy Unknown Hypertension Unknown Mitral valve prolapse Unknown Advance Directives No Advanced Directives Records Found Advance Directive Response Recorded Date/ Time Living Will No December 02, 2024 7:09am Do you have a Healthcare Power of Front End Developer Javascript Html Css? No December 02, 2024 7:09am Chief Complaint and Reason for Visit Chief Complaint Admit Date COUGH/ST/SINUS COMP October 22, 2024 6:1 6am lower extremity December 02, 2024 7:0 4am Additional Source Comments (unrecognized sect ion and content) No Status Records FoundNo Status Records Found INFORMATION SOURCE (unrecogn ized section and content) DATE CREATED AUTHOR 03/05/2020 [facility] DATE CREATED AUTHOR AUTHOR'S ORGANIZ ATION 01/14/2025 [facility] Care Teams (unrecognized sec tion and content) Team Status: Active Member Role Status Dates No Primary Care Physician Primary Care Provider Active Team Status: Inactive Member Role Status Dates Dr. Ana Fofana MD Primary Care Provider Active Start: October 22, 2024 End: October 22, 2024 Dr. Ana Fofana MD Referring Provider Active S tart: October 22, 2024 End: October 22, 2024 Sergey SALDANA, PA Attending Provider Active Start: October 22, 2024 End: October 22, 2024 Team Status: Inactive Member Role Status Dates Dr. Denton Parsons DO Emergency Provider Active Start: December 02, 2024 End: December 02, 2024 No Primary Care Physician Primary Care Provider Active Start: December 02, 2024 End: December 02, 2024 FOR RECORDS PERTAINING TO PATIENTS WHO ARE OR HAVE BEEN ENROLLED IN A CHEMICAL DEPENDENCY/SUBSTANCEABUSE PROGRAM, SOME INFORMATION MAY BE OMITTED. This clinical summary was aggregated from multiple sources. Caution should be exercised in using it in the provision of clinical care. This summary normalizes information from multiple sources, and as a consequence, information in this document may materially change the coding, format and clinical context of patient data. In addition, data may be omitted in some cases. CLINICAL DECISIONS SHOULD BE BASED ON THE PRIMARY CLINICAL RECORDS. [employer] provides no warranty or guarantee of the accuracy or completeness of information in this document.
--- NOTE | 2025-01-17 08:00 | MRI_ITS ---
PROCEDURE: LOWER EXT JOINT ONLY (ROUTINE) 01/17/2025 REASON FOR EXAM: FRACTURE SPRAIN W/PERONEAL TENDON TEAR TECHNIQUE: MRI of the right lower Extremity. Multiplanar and multisequence images were obtained without IV contrast administration. COMPARISON: COMPARISON : Radiographs on 12/02/2024. FINDINGS: Nondisplaced microtrabecular fracture of the tip of the lateral malleolus. Moderate surrounding bone marrow edema suggestive of acute/subacute fracture. Prominent overlying soft tissue edema and swelling. Mild multifocal bone marrow edema of the talus and to a lesser extent the remaining tarsal bones. Overlying soft tissue edema and swelling. Findings may represent fibrovascular reaction from repetitive minor trauma, recent contusions versus mild form of reflex sympathetic dystrophy. Mild tibiotalar joint effusion. Mild subtalar joint effusion. Mild tendinosis/strain of the peroneus longus tendon. No associated significant tear. Mild effusion is noted in the sinus tarsus. Mild edema of the subtalar ligaments. There is normal signal intensity from the remaining visualized bone marrow. No abnormality is seen in the posterior tibialis, flexor digitorum longus tendon and flexor hallucis longus tendon. The peroneus longus and brevis tendons are otherwise unremarkable. The tibialis anterior, extensor hallucis longus and extensor digitorum longus tendons are unremarkable. No abnormality is seen in Achilles tendon and teno-osseous insertion. Unremarkable plantar fascia. Unremarkable plantar calcaneal tubercles. Normal intrinsic muscles of the rearfoot. No abnormality is seen distal tibiofibular syndesmotic ligamentous complex. No abnormality is seen in lateral ligamentous complex. No abnormality is seen deltoid ligamentous complexes. The plantar calcaneonavicular (spring) ligament is unremarkable. No other abnormality is seen in the tibiotalar articulation. Normal talar dome. No other abnormality is seen in the subtalar articulations. Normal talonavicular articulation. Normal calcaneocuboid articulation. Normal navicular-cuneiform articulations. MRI/Lower Ext Joint Only (Routine) IMPRESSION: 1. Nondisplaced microtrabecular fracture of the tip of the lateral malleolus. 2. Moderate surrounding bone marrow edema suggestive of acute/subacute fracture . 3. Prominent overlying soft tissue edema and swelling. 4. Mild multifocal bone marrow edema of the talus and to a lesser extent the re maining tarsal bones. Overlying soft tissue edema and swelling. Findings may represent fibrovascular reaction from repetitive mi nor trauma, recent contusions versus mild form of reflex sympathetic dystrophy. 5. Mild tibiotalar joint effusion. 6. Mild subtalar joint effusion. 7. Mild tendinosis/strain of the peroneus longus tendon. No associated signifi cant tear. 8. Mild effusion is noted in the sinus tarsus. 9. Mild edema of the subtalar ligaments. Reading Location: [facility]
== END | disposition home or self-care (01) ==
LOC: MRI 07:26
PROVIDERS: Referring Provider Podiatrist; Visit Provider Podiatrist
DX: S93.419D Sprain of calcaneofibular ligament of unspecified ankle, subsequent encounter (principal); S86.311A Strain of muscle(s) and tendon(s) of peroneal muscle group at lower leg level, right leg, initial encounter; S82.62XG Displaced fracture of lateral malleolus of left fibula, subsequent encounter for closed fracture with delayed healing
CPT/HCPCS: 73721